=== PATIENT | female | born 1960 | race Caucasian/White ===

== ENCOUNTER → 2016-08-17 | Day surgery (SDC) | payer MEDICARE, MEDICAID ==
[~2016-08-17] VITALS: Ht 165.1 cm; Wt 111.6 kg
[~2016-08-17] MED LIST: CPAP INH; DULERA 200 MCG/51 EA INH; FLONASE 50 MCG/16 GM NOSE; NORCO 5-325 TA1 EACH PO; PROAIR HFA8.5 GM INH; PROTONIX40 MG PO; RYTHMOL150 MG PO; SINGULAIR10 MG PO; SPIRIVA HANDIHA1 KIT INH; SPIRIVA18 MCG INH; SYMBICORT 16010.2 GM INH; ULTRAM50 MG PO; XARELTO20 MG PO
== END | disposition disaster alternative care site (69) ==
LOC: GPOC 08-13 13:00 → GEND 08:48 → GPOC 13:00
PROC: 0DB68ZX Excision of Stomach, Via Natural or Artificial Opening Endoscopic, Diagnostic (ICD-10-PCS; principal; 2016-08-17)
DX: K31.89 Other diseases of stomach and duodenum (principal); J44.9 Chronic obstructive pulmonary disease, unspecified; F17.210 Nicotine dependence, cigarettes, uncomplicated; Z86.711 Personal history of pulmonary embolism; Z79.01 Long term (current) use of anticoagulants; Z90.49 Acquired absence of other specified parts of digestive tract; Z96.641 Presence of right artificial hip joint; Z96.652 Presence of left artificial knee joint
CPT/HCPCS: J2001; J7030

== ENCOUNTER → 2016-08-24 | Outpatient (CLI) | payer MEDICARE, MEDICAID ==
--- NOTE | ~2016-08-24 | ESTC ---
Cardiac Perfusion Imaging Demographics Patient Name PATIENT ERIN Montgomery Gender Female Patient Number [id number] Race Visit Number [id number] [place] [id number] Room Number Accession Number [id number] Height Date of 1960 Weight Age 55 year(s) BSA Referring Audrey Nolan MD BMI Physician Interpreting Audrey Nolan MD Date of study 08/24/[address] MD/LIDIA Dean APRN Technologist Ordering Audrey Nolan MD Stress Rothenberger RVT, Physician emergency medical technician/driver RDCS Sandee Jefferson RDCS, RVT Stress ECG Erich Quintero Nurse Loki Eden RN Reading Physician Jermaine MARAVILLA Procedure Procedure Type: Nuclear Stress Test:Cardiolite Stress Test Procedure Start time: 08/24/2016 08:30 Indications: Chest pain. Risk Factors The patient risk factors include:obesity, chronic lung disease and prior valve surgery/procedure . Conclusions Summary Cardiolite SPECT images demonstrates an anteroseptal defect seen in the basal portion with partial filling in on the stress images. possibly consistent with nontransmural infarct. Normal TID ratio Gated images demonstrate normal left ventricular systolic function without inducible wall motion abnormalities. LVEF is 68% Stress Protocols Resting ECG RSR with right BBB. Resting HR:65 bpm Resting BP:123/58 mmHg Pre-stress physical exam: Patient assessed by Urmila Jung APRN prior to testing. Had albuterol treatment before lexiscan. Stress Protocol:Pharmacologic Peak HR:91 bpm HR response: Appropriate Peak BP:123/58 mmHg BP response: Appropriate Predicted HR: 167 bpm HR/BP product:57621 % of predicted HR: 54 Reason for termination:Infusion complete ECG Findings Indeterminate ECG due to baseline abnormalities. Arrhythmias None Symptoms Shortness of breath. Dizzy. Both symptoms resolve with time. Stress Interpretation Appropriate hemodynamic response to Lexiscan. No significant ST-T wave changes with Lexiscan. ECG portion is negative for ischemia by diagnostic criteria. Stress supervision and interpretation provided by Ingrid Jung APRN . Imaging Results Applied corrections - Motion correction applied High risk findings Summed scores - Summed stress score: 16 - Summed rest score: 17 - Summed difference score: -1 Stress ejection Ejection fraction:68 % EDV :129 ml ESV :41 ml Stroke volume :88 ml LV mass :169 gr Imaging Protocols Rest Stress Isotope:Tc99m Sestamibi IV Isotope: Tc99m Sestamibi IV Isotope dose:14.7 mCi Isotope dose:45.7 mCi Date:08/24/2016 07:04 Date:08/24/2016 08:52 Technique: SPECT Technique: Gated Supine SPECT Supine Scan Time:45-60 minutes post Scan Time:45-60 minutes post injection injection Procedure Medications - Regadenoson (Lexiscan) 0.4 mg IV over 10-15 sec. I.V. 0.4 mg. Medical History Admission Data Admission date: 08/24/2016 Admission Time: 06:46 Hospital Status: Outpatient. Signatures dtt: Ovidio Ventura (cardio) dtd: 08/24/16 0830 Physician Self Edit
== END | disposition disaster alternative care site (69) ==
LOC: GRAD 08-23 07:00
DX: R07.9 Chest pain, unspecified (principal); R06.02 Shortness of breath
CPT/HCPCS: A9500; J2785

== ENCOUNTER 2016-10-22 21:11 | Inpatient (IN) | payer MEDICARE, MEDICAID ==
[~2016-10-22] VITALS: Ht 165.1 cm; Wt 115.2 kg
--- NOTE | ~2016-10-22 | HP ---
PATIENT'S NAME: PATIENT, ERIN Montgomery [facility] AGE: 56 Y [address] ROOM: [address] [place], [place] [address] LOCATION: [facility] [place] ADMIT DATE: 10/22/2016 History & Physical DISCHARGE DATE: FAMILY PHYSICIAN: Ehsan Blunt MD ATTENDING PHYSICIAN: Kulwant Briscoe DATE OF SERVICE: CHIEF COMPLAINT/HISTORY OF PRESENT ILLNESS: This is a 56-year-old female with a right total hip replacement by Dr. Manan Hernandez about 20 years or so ago. This was an [employer] noncemented hip replacement and she did have problems with recurrent dislocations several years after her initial hip replacement, she underwent revision and bone grafting of medial femoral defect. She had very few problems after that until recently when she is noted to have eccentric placement of the head and the cup indicative of poly wear. She was starting to have episodes in which it felt as if the hip was going to dislocate. She was taken to the operating room 4 weeks ago at [facility] where a head and poly exchange were performed. She had drainage from her wound for 7-10 days postop and she was started on Augmentin and drainage cultured. The drainage stopped and the Augmentin was stopped. That was about 2 weeks ago. Now , she started having low back pain all way across her low back and then 10/22/2016, her pain was worse in the morning and started to get worse as the day went on. She was complaining of pain in her low back, both sides, with radiation into her right lateral thigh and lower leg and radiation up into her right side. She was complaining of some medial thigh pain as well, that was less severe. She presented herself to the emergency department on 10/22/2016 at night and she had a slightly elevated CRP to 1.19 with high normal of 0-0.9. Her sedimentation rate was 57 with normal range of 0-30. There is no drainage from her hip and no tenderness from her incision. She was placed in the hospital overnight on observation where she was able to get up and around and 2 Vicodin took care of her pain. The concern is with a possibility of sepsis of her total hip replacement. PAST MEDICAL HISTORY: Congenital heart disease, status post operation to repair her heart valve; obstructive sleep apnea, on CPAP; COPD; history of PE 4 years ago; and morbid obesity. OPERATIONS: Hip operations as above. ALLERGIES: THE PATIENT GETS RASH WITH KEFLEX. PATIENT'S NAME: PATIENT, ERIN Montgomery [facility] AGE: 56 Y [address] ROOM: [place] [address] LOCATION: [facility] [place] ADMIT DATE: 10/22/2016 History & Physical DISCHARGE DATE: FAMILY PHYSICIAN: Ehsan Blunt MD ATTENDING PHYSICIAN: Kulwant Briscoe MEDICATIONS: 1. Dulera. 2. Protonix. 3. Rythmol. 4. Singulair. 5. Spiriva HandiHaler. 6. Flonase. 7. Proventil. 8. [place]. HABITS: The patient does continue to smoke 5-10 cigarettes a day. FAMILY HISTORY: Negative for any complications with anesthesia. PHYSICAL EXAMINATION: GENERAL: This is a well-developed, well-nourished, morbidly obese female who is alert and cooperative. VITAL SIGNS: Blood pressure 129/70, heart rate 74, respirations 18, and temperature 97.5. HEENT: Head normocephalic and atraumatic. LUNGS: Clear to auscultation. HEART: Regular rate and rhythm. ABDOMEN: Obese, soft, and nontender. : Deferred. RECTAL: Deferred. EXTREMITIES: Her right hip has a healing long posterior scar from her hip replacement and revisions. There were 2 keren still in the scar. There is no drainage. There is some faint erythema about the scar. Hip motion is painless. IMPRESSION: 1. Low back pain versus right hip pain. The patient has history that could be consistent with partially treated postoperative hip infection. 2. Morbid obesity. 3. Obstructive sleep apnea. 4. History of pulmonary embolism. 5. Chronic obstructive pulmonary disease. PLAN: The plan is to aspirate the hip for cultures. If there is obvious purulence in the hip joint, she will be taken to the operating room for debridement and irrigation, and placement of antibiotic beads. After the aspiration if it is inconclusive, we will put her on IV antibiotics and await culture results. PATIENT'S NAME: PATIENT, ERIN Montgomery [facility] AGE: 56 Y [address] ROOM: [place] [address] LOCATION: [facility] [place] ADMIT DATE: 10/22/2016 History & Physical DISCHARGE DATE: FAMILY PHYSICIAN: Ehsan Blunt MD ATTENDING PHYSICIAN: Kulwant Briscoe The procedure, its risks, benefits, and alternatives were discussed with the patient who appears to understand and requests to proceed. MD DESHAWN ZARATE/modl /[id number] D: [id number] T: [id number] HISTORY & PHYSICAL
--- NOTE | ~2016-10-22 | CON ---
PATIENT'S NAME: PATIENT, ERIN Montgomery [facility] AGE: 56 Y [address] ROOM: [place] [address] [place] [facility] [place] DATE: 10/22/2016 Consultation DISCHARGE DATE: FAMILY PHYSICIAN: Ehsan Blunt MD ATTENDING PHYSICIAN: Kulwant Briscoe REFERRING PHYSICIAN: Kulwant Briscoe MD CONSULTING PHYSICIAN: Dr. Cano. REASON FOR CONSULTATION: Medical management. HISTORY OF PRESENT ILLNESS: The patient is a 56-year-old female with past medical history as below. She has undergone a revision of her hip with Dr. Briscoe at [facility] 1 month ago. She was seen in his office 2 weeks ago and was doing well. Today, she came in with complaints of right hip soreness. Her incision looks dry and intact. There is no discoloration around the incision either. Dr. Briscoe requested the patient to be admitted for an I and D, and for the Hospitalist Group to provide an inpatient consultation. At this point aside from her hip discomfort, the patient has no other complaints. REVIEW OF SYSTEMS: All systems have been reviewed and are negative aside from pertinent positives mentioned above. PAST MEDICAL HISTORY: As reported by the patient is: 1. Congenital heart disease, status post surgery to repair heart valve. 2. Obstructive sleep apnea, on CPAP. 3. COPD. 4. History of a PE, 4 years ago on Xarelto. SURGICAL HISTORY: In addition to her hip surgery, it is also significant for recent knee surgery. SOCIAL HISTORY: The patient continues to smoke 5 to 10 cigarettes a day. FAMILY HISTORY: Reviewed and is noncontributory. PATIENT'S NAME: PATIENT, ERIN Montgomery [facility] AGE: 56 Y [address] ROOM: [address] [address] LOCATION: [facility] [place] ADMIT DATE: 10/22/2016 Consultation DISCHARGE DATE: FAMILY PHYSICIAN: Ehsan Blunt MD ATTENDING PHYSICIAN: Kulwant Briscoe PHYSICAL EXAMINATION: VITAL SIGNS: Temperature 98.0, pulse 71, respirations 19, blood pressure 120/57, and saturating 93% on room air. GENERAL: A morbidly obese, middle- aged female, in no acute distress. NEUROLOGIC: Nonfocal. EYES: Show pupils are equal and reactive to light. LYMPHATIC: Shows no cervical lymphadenopathy. ENDOCRINE: Shows no thyromegaly. LUNGS: Clear to auscultation. HEART: Rate is regular with 2/6 systolic murmur. GI: Abdomen is soft, nontender, nondistended. : No costovertebral angle tenderness. MUSCULOSKELETAL: Shows a well-healing scar over her right hip. The rest of the exam is deferred to Orthopedics. LABORATORY DATA: Studies performed in the ER significant for a CRP of 1.19. Normal CBC and a sedimentation rate of 57. IMPRESSION AND RECOMMENDATIONS: This is a 56-year-old female admitted for evaluation of right hip pain 1 month after a right hip revision. Individual problems to be addressed: 1. Obstructive sleep apnea. Continue on CPAP. 2. History of pulmonary embolism. We will hold off on her Xarelto for the time being in anticipation of possible procedure. 3. Chronic obstructive pulmonary disease. Continue her Symbicort and Singulair as well as Spiriva. 4. The patient is on propafenone, but she did not provide a history of atrial fibrillation, though she is not a very good historian. I will continue the propafenone for now and we will get additional info from PMD in the am. Additional management will depend on clinical course. We will follow the patient with you and manage her medical problems. Thank you for allowing us to participate in the care of this patient. Time dedicated to this patient's encounter is 35 minutes. MD TAB REDMOND/tonie /[id number] d: 10/23/16 0459 t: 11/02/166, CONSULTATION REPORT
--- NOTE | ~2016-10-22 | OR ---
PATIENT'S NAME: PATIENT, ERIN Montgomery [facility] AGE: 56 Y [address] ROOM: [address] [place], [place] [address] LOCATION: [facility] [place] ADMIT DATE: 10/22/2016 OR/Procedure Report DISCHARGE DATE: 10/24/2016 FAMILY PHYSICIAN: Ehsan Blunt MD ATTENDING PHYSICIAN: Kulwant Briscoe SURGEON: Kulwant Briscoe MD MOLECULAR PHYSICIST: DATE OF PROCEDURE: 10/23/2016 PREOPERATIVE DIAGNOSIS: Right hip pain after a total hip replacement, possible septic hip replacement. POSTOPERATIVE DIAGNOSIS: Right hip pain after a total hip replacement, possible septic hip replacement. OPERATION: Aspiration of right hip. ANESTHESIA: MAC. INDICATIONS: This is a 56-year-old morbidly obese female with a total hip replacement that is at least 20 years old, done by Dr. Manan Hernandez with [employer]. She had a cup liner and head exchange four weeks ago at [facility]. 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 Therefore, a bone graft was placed. On closure, she had vancomycin sprinkled into the wound. Postoperatively, she had a wound VAC dressing. About one week postoperatively, she was still having drainage from a part of the wound, and she was put on Augmentin for several days. The drainage did stop, and the Augmentin was stopped two weeks ago. She has done well up until two days ago when she started having low back pain. Yesterday morning, she states she could hardly walk because of the low back pain, which went across both sides of her low back, and pain that radiated up into her right side and down her right thigh and right lower leg. She was also having some groin pain. Her pain was severe enough that she presented to the Emergency Department last night, where her sedimentation rate and CRP were slightly elevated. She was hospitalized in order to aspirate the hip, and was started on IV antibiotic, pending cultures. DESCRIPTION OF PROCEDURE: The patient was brought to the Operating Room and sedated. Her right hip and thigh were prepped and draped in an aseptic manner. The hip was visualized on the C-arm. An 18-gauge spinal needle, 6- 1/2 inches long, was then placed going anteriorly, and the needle was directed straight down to the hip. The needle tip struck something hard, and it appeared to be and to correspond to the head or neck of the femoral component. PATIENT'S NAME: PATIENT, ERIN Montgomery [facility] AGE: 56 Y [address] ROOM: [place] [address] LOCATION: [facility] [place] ADMIT DATE: 10/22/2016 OR/Procedure Report DISCHARGE DATE: 10/24/2016 FAMILY PHYSICIAN: Ehsan Blunt MD ATTENDING PHYSICIAN: Kulwant Briscoe The joint was aspirated of about 5 mL of clear orange serosanguineous fluid. This was sent for cultures, cell count, and crystals. There was not enough fluid for a Synovasure sample. The needle was withdrawn and sterile dressing was applied. POSTOPERATIVE DISPOSITION: The patient was sent to the Recovery area, having tolerated the procedure well. MD DESHAWN ZARATE/tonie /[id number] d: 10/23/161954 t: 11/02/16 1326, OPERATIVE SUMMARY
--- NOTE | ~2016-10-22 | ER ---
PATIENT'S NAME: PATIENT, ERIN Montgomery [facility] AGE: 56 Y [address] ROOM: [place] [address] LOCATION: [facility] [place] ADMIT DATE: 10/22/2016 ER/Outpatient Report DISCHARGE DATE: FAMILY PHYSICIAN: Ehsan Blunt MD ATTENDING PHYSICIAN: Kulwant Briscoe TIME SEEN: 2125 hours. CHIEF COMPLAINT: Right hip pain. HISTORY OF PRESENT ILLNESS: The patient is a 56-year-old female who approximately a month ago had a right hip revision done by Dr. Briscoe. She said that over the last 24 hours she has had increased pain to the point where she has had trouble just sitting on that side. She also states there has been some swelling and tenderness over the incision site. She denied any fever or chills. ALLERGIES: NONE GIVEN. CURRENT MEDICATIONS: See her copied list which was reviewed. MEDICAL HISTORY: Includes COPD and history of PEs in the past. SURGERIES: She has had 3 surgeries involving her right hip. Initial surgery was done due to an injury. She has had a knee replaced and heart valve replaced. SOCIAL HISTORY: Smoker, half pack a day. REVIEW OF SYSTEMS: GENERAL: No fever or chills today. HEAD AND ENT: Denies any headache or sore throat. RESPIRATORY: No cough or wheezing. GASTROINTESTINAL: No vomiting or abdominal pain. MUSCULOSKELETAL: Right hip pain that does radiate down into her thigh, also into her back. PHYSICAL EXAMINATION: VITAL SIGNS: Her blood pressure 131/79, her temperature 98.9, her pulse 96, PATIENT'S NAME: PATIENT, ERIN Montgomery [facility] AGE: 56 Y [address] ROOM: [place] [address] LOCATION: [facility] [place] ADMIT DATE: 10/22/2016 ER/Outpatient Report DISCHARGE DATE: FAMILY PHYSICIAN: Ehsan Blunt MD ATTENDING PHYSICIAN: Kulwant Briscoe respirations 18, and O2 saturations 94%. GENERAL APPEARANCE: She walked in with a walker. Seemed to be bearing partial weight. Otherwise, she appeared alert and oriented. LUNGS: Appeared clear. ABDOMEN: Soft. MUSCULOSKELETAL: Right hip, there is a large excision that extends posteriorly and laterally. There was no drainage present. It did appear slightly red, but tender. LABORATORY AND DIAGNOSTIC DATA: CBC: Her white count was 8000, hemoglobin 11.7, her ANC was 5.1, her sedimentation rate was elevated at 57 as well as her CRP. X-ray of her right hip showed no acute changes from her previous one. ASSESSMENT: Severe pain, right hip, status post right hip revision. PLAN: I did talk to Dr. Briscoe, the orthopedic surgeon, who had operated on her hip. His recommendation to admit her for observation and aspiration to rule out any infection. The patient was given 2 [place] here in the emergency room for pain. The patient will be admitted to [facility]. ARACELIS LA FOR MD ESTEPHANIA AGUSTIN/tonie /[id number] d: 10/23/16 0157 t: 10/28/16 1821, OUTPATIENT REPORT
[~2016-10-22 21:11] MED LIST changes: -DULERA 200 MCG/51 EA INH; -NORCO 5-325 TA1 EACH PO; -SPIRIVA HANDIHA1 KIT INH
[2016-10-22 21:57] LABS: BASOPHIL # 0.1 K/uL (0.0-0.2); BASOPHIL % 0.6 %; EOSINOPHIL # 0.3 K/uL (0.0-0.5); EOSINOPHIL % 3.4 %; HEMATOCRIT 37.8 % (33.0-46.0); HEMOGLOBIN 11.7 g/dL (10.0-15.0); IMMATURE GRANULOCYTE % 0.2 %; LYMPHOCYTE # 1.9 K/uL (0.8-4.0); LYMPHOCYTE % 23.5 %; MCH 28.4 pg (27.0-34.0); MCV 91.7 fl (83.0-98.0); MONOCYTE # 0.7 K/uL (0.0-1.0); MONOCYTE % 8.8 %; MPV 9.6 fl (9.4-12.4); NEUTROPHIL # (ANC) 5.1 K/uL (1.8-7.8); NEUTROPHIL % 63.5 %; NRBC % 0 /100WBC (0-0.00); PLATELET COUNT 304 K/uL (150-450); RBC 4.12 M/uL (3.50-5.50); RDW-CV 14.1 % (11.9-14.6)
[2016-10-22 22:13] LABS: ALBUMIN 3.5 gm/dL (3.5-5.0); ANION GAP 8.8 (10.0-19.0); CALCIUM 8.8 mg/dL (8.5-10.5); POTASSIUM 3.8 mMol/L (3.7-5.1); TOTAL BILIRUBIN 0.3 mg/dL (0.0-1.5); TOTAL PROTEIN 7.9 g/dL (6.0-8.4)
[2016-10-23] MEDS ORDERED: CPAP INH (01:47)
--- NOTE | 2016-10-23 03:37 | NUR ---
Patient presented to ER with increased hip pain, had hip surgery done by Dr. Brewster at [facility], incision is slightly reddened, arrived on floor at 0030 VSS 129/70 97.5 18 74 95% RA, walks with a walker independently, patient states she is to have an aspiration done of the right hip
--- NOTE | 2016-10-23 06:01 | NUR ---
Patient alert and oriented x3, very pleasant and cooperative, here to have an aspiration of the right hip due to possible infection, NPO since 99, IV placed in the left forearm with NACL running at 30mls/hr, ambulates well stand by assist with walker, has CPAP, pain has been under control slept most of the night she has been here
--- NOTE | 2016-10-23 16:22 | NUR ---
Significant Event:Is A/O.Had aspiration of Rt.hip,which he obtained 5ml of serosang.drng & sent in for culture.Started on IV antibiotics.IV Lt.forearm,when flds done can be SL.Very sl.pedal edema.CMS gd.When did aspiration today they went through upper Rt.groin.Has lg bandaid over.Pretty comfortable at this time.No N/V. Follow up:
--- NOTE | 2016-10-24 02:55 | NUR ---
Significant Event: ASSUMED CARE AT 0100. PATIENT ALERT AND ORIENTED X 3. VSS., TAKING PO AND VOIDING WITHOUT DIFFICULTY. UP WITH 1 ASSIST, GB AND WALKER. IV INFUSING WITHOUT DIFFICULTY IN LEFT ANTERIOR FOREARM. DENIES PAIN. LAST PERCOCET WAS AT 2219. WEAR CPAP AT HS. BANDAID PRESENT TO [facility]. PLEASANT AND COOPERTIVE WITH CARES. ON IV VANCO. Follow up:
[2016-10-24] MEDS ORDERED: SPIRIVA HANDIHA1 KIT INH (10:49)
[2016-10-24] MEDS ORDERED: DULERA 200 MCG/51 EA INH (10:49)
[2016-10-24] MEDS ORDERED: NORCO 5-325 TA1 EACH PO (10:52)
--- NOTE | 2016-10-24 16:41 | NUR ---
Patient is alert and oriented x3. VSS and on RA. IV removed. Last dose of vanco given before patient left. Instructions given on new medications, medications, and general d/c information. Patient and verbalized understanding. 1 Percocet was given at the time of the dismissal. Wheeled to the front entrance for discharge.
== END 2016-10-24 16:00 | disposition disaster alternative care site (69) | DRG 552 ==
LOC: GMED 21:11 → GMSU 23:40
PROVIDERS: Emergency Medicine; ADMIT Orthopaedic Surgery
PROC: 0S993ZX Drainage of Right Hip Joint, Percutaneous Approach, Diagnostic (ICD-10-PCS; principal; 2016-10-23)
DX: M54.5 Low back pain (principal); J96.11 Chronic respiratory failure with hypoxia; Z68.41 Body mass index [BMI] 40.0-44.9, adult; I48.0 Paroxysmal atrial fibrillation; E66.01 Morbid (severe) obesity due to excess calories; J44.9 Chronic obstructive pulmonary disease, unspecified; G47.33 Obstructive sleep apnea (adult) (pediatric); F17.210 Nicotine dependence, cigarettes, uncomplicated; Z96.641 Presence of right artificial hip joint; Z86.711 Personal history of pulmonary embolism; Z79.01 Long term (current) use of anticoagulants; Z79.899 Other long term (current) drug therapy
CPT/HCPCS: J2001; J3370; J7030; J7050